=== PATIENT | male | born 1955 | race Caucasian/White ===

== ENCOUNTER → 2017-01-29 08:44 | Outpatient (CLI) | payer MEDICARE | END | disposition home or self-care (01) | LOC: D.RAD 08:44 | DX: J44.9 Chronic obstructive pulmonary disease, unspecified (principal) ==

== ENCOUNTER → 2017-05-21 10:42 | Outpatient (CLI) | payer MEDICARE | END | disposition home or self-care (01) | LOC: D.RT 10:42 | DX: J44.9 Chronic obstructive pulmonary disease, unspecified (principal) ==

== ENCOUNTER 2017-08-03 06:26 | Outpatient (CLI) | payer MEDICARE ==
[~2017-08-03] VITALS: Ht 193 cm; Wt 95.0 kg
--- NOTE | ~2017-08-03 | HEMODYNAMI ---
PATIENT:ELY BANDA MEDICAL RECORD: [id number] : 59 LOCATION:[facility] ADMISSION DATE: 08/03/17 Generatedon:08/03/20178:53 Patient name: ELY BANDA Patient #: [id number] SSN: DO B: 1955 Date of study: 08/03/2017 Page: Of Hemodynamic Procedure Report Patient Data Patient Demographics Procedure consent was obtained First Name: ELY Gender: Male Last Name: SOLO : 1955 [facility] Initial: LAWRENCE Age: 61 year(s) Patient #: [id number] Race: Unknown Additional ID: [id number] Contact details Address: [address] [place] [address] ROAD State: [place] City: [place] Zip code: [address] Past Medical History Allergies: No known allergies Admission Admission Data Admission Date: 08/03/2017 Admission Time: 6:26 Procedure Procedure Types Cath Procedure Diagnostic Procedure LHC LHC w/Coronaries Miscellaneous Procedures Moderate Sedation up to 15 minutes Procedure Description Procedure Date Procedure Date: 08/03/2017 Procedure Start Time: 8:40 Procedure End Time: 8:52 Procedure Staff Name Function Perico Ling MD Performing Physician Denise Morillo RT Scrub Maurice Estrada RN Nurse Becca Kuo RT Monitor Indication Angina Procedure Data Cath Procedure Fluoroscopy Diagnostic fluoroscopy Total fluoroscopy Time: 3.6 time: 3.6 min min Diagnostic fluoroscopy Total fluoroscopy dose: 597 dose: 597 mGy mGy Contrast Material Contrast Material Type Amount (ml) Isovue 300 53 Entry Location Entry Primary Successful Side Size Upsize Upsize Entry Closure Graham ccessful Closure Location (Fr) 1 (Fr) 2 (Fr) Remarks Device Remarks Radial Right 6 Fr Mechanical tr artery Short Compression Estimated blood loss: 10 ml Diagnostic catheters Device Type Used For End Catheter Placement Diagnostic Terumo Multi-vessel Optitorque 5Fr [place] 4.5 Angiography catheter Procedure Complications No complications Procedure Medications Medication Administration Route Dosage Oxygen NC 2 l/min Lidocaine 2% added to field 20 Heparin Flush Bag added to field 2 bags (1000units/500ml NS) 0.9% NaCl I.V. 100 ml/hr Versed I.V. 2 mg Fentanyl I.V. 25 mcg Radial Cocktail I.A. 1 syringe (Verapomil 2mg/Nitro 400mcg/Heparin 1500units) Hemodynamics Rest Heart Rate: 59 (bpm) Pressure Samples Time Site Value (mmHg) Purpose Heart Use Rate(bpm) 8:43 AO 107/13(42) EDP 87 Gradients Valve Time Site Site Mean SEP/DFP Peak To Heart Use 1 2 (mmHg) (sec/min) Peak Rate (mmHg) (bpm) Other 8:44 AO AO 81 Snapshots Pre Cath Intra NCS Post Cath Vital Signs Time Heart Resp SPO2 NIBP (mmHg) Rhythm Pain Sedation Rate (ipm) (%) Status Level (bpm) 8:25:55 61 20 100 142/96(114) NSR 0 (11) 10(A) , No pain 8:29:57 60 19 100 138/96(112) NSR 0 (11) 10(A) , No pain 8:34:17 61 19 100 132/93(109) NSR 0 (11) 10(A) , No pain 8:38:25 65 16 100 132/89(104) NSR 0 (11) 10(A) , No pain 8:42:39 75 14 97 104/69(92) NSR 0 (11) 9(A) , No pain 8:46:43 72 15 95 105/71(85) NSR 0 (11) 9(A) , No pain 8:50:44 69 16 96 110/76(87) NSR 0 (11) 9(A) , No pain 8:52:00 69 15 97 106/72(89) NSR 0 (11) 10(A) , No pain Medications Time Medication Route Dose Verified Delivered Reason Notes E ffectiveness by by 8:26:40 Oxygen NC 2 l/min Perico Buffie used for Sushil Estrada edger technician 8:26:48 Lidocaine 2% added 20ml Perico Perico for local to vial Sushil Ling MD anesthetic field [facility] 8:26:56 Heparin Flush added 2 bags Perico Perico used for Bag to Sushil Ling MD procedure (1000units/500ml field [place] NS) 8:27:06 0.9% NaCl I.V. 100 Perico Buffie Per ml/hr Sushil Estrada RN physician 8:41:02 Radial Cocktail I.A. 1 Perico Perico for (Verapomil syringe Sushil Ling MD vasodilation 2mg/Nitro MD 400mcg/Heparin 1500units) 8:41:05 Fentanyl I.V. 25 mcg Perico Buffie for sedation Sushil Estrada RN, MD 8:41:53 Versed I.V. 2 mg Perico Buffie for sedation Sushil Estrada RN, MD Procedure Log Time Note 8:00:08 Denise Morillo RT(R) sent for patient. Start room use. 8:10:31 Diagnostic Cath Status : Elective 8:11:01 Indication : Angina 8:11:12 Time tracking: Regular hours 8:11:18 Plan of Care:Hemodynamics will remain stable., Cardiac rhythm will remain stable., Comfort level will be maintained., Respiratory function will remain adequate., Patient/ family verbilizes understanding of procedure., Procedure tolerated without complication., Recovers from procedure without complications.. 8:16:19 Patient received from Pre/Post Procedure Room to CCL 2 Alert and oriented. Tansferred to table in Supine position. 8:16:20 Warm blankets applied, and ashish hugger turned on for patient comfort. 8:16:21 Correct patient and procedure confirmed by team. 8:16:22 Signed procedure consent form obtained from patient. 8:24:50 ECG and BP/O2 sat monitors applied to patient. 8:24:51 Vital chart was started 8:24:52 Baseline sample Acquired. 8:24:59 Rhythm: sinus rhythm 8:25:00 Full Disclosure recording started 8:25:40 H&P Date Dictated: 08/02/2017 Within 30 days and on chart.. 8:25:43 Pre-procedure instructions explained to patient. 8:25:45 Family in waiting room. 8:25:47 Patient NPO since Midnight. 8:25:55 Patient allergic to No known allergies 8:26:00 Is the patient allergic to Iodine/contrast media? No. 8:26:01 Is patient on blood thinner?Yes 8:26:04 ACC The patient was administered the following blood thiners within the last 24 hours: ACCPlavix 8:26:06 Patient diabetic? No. 8:26:11 Snore? Unknown 8:26:13 Sleep apnea? No 8:26:25 Airway obstruction? Yes COPD 8:26:28 Dentures? No ? 8:26:35 Patient pain scale 0/10 ?. 8:26:40 Oxygen 2 l/min NC was administered by Maurice Estrada RN; used for procedure; 8:26:48 Lidocaine 2% 20ml vial added to field was administered by Perico Ling MD; for local anesthetic; 8:26:51 IV patent on arrival in left hand with 0.9% NaCl at [facility]. 8:26:56 Heparin Flush Bag (1000units/500ml NS) 2 bags added to field was administered by Perico Ling MD; used for procedure; 8:27:06 0.9% NaCl 100 ml/hr I.V. was administered by Maurice Estrada RN; Per physician; 8:27:37 Lab results completed and on chart. 8:27:41 Right Radial & Right Groin area was prepped with chlora-prep and draped in sterile fashion 8:27:42 Alarms reviewed by R. N. 8:27:43 Sharps counted by scrub and verified by R.N. 8:27:45 Physician paged 8:27:45 Physician arrived 8:28:33 Use device set Radial Dx 8:28:36 Acist Syringe opened to sterile field. 8:28:36 Medline Cath Pack opened to sterile field. 8:28:37 Bag Decanter opened to sterile field. 8:28:37 Terumo 6Fr Slender Glidesheath opened to sterile field. 8:28:37 St Cory 260cm J .035 wire opened to sterile field. 8:28:38 Acist Hand Control opened to sterile field. 8:28:38 Acist Manifold opened to sterile field. 8:28:39 Tegaderm 4 x 4 opened to sterile field. 8:28:39 MBrace Wrist Support opened to sterile field. 8:40:17 --------ALL STOP TIME OUT------ 8:40:17 Final Timeout: patient, procedure, and site verified with staff and physician. All members of the team are in agreement. 8:40:20 Right Radial & Right Groin site verified by team. 8:40:23 Physical assessment completed. ASA score P 2 - A patient with mild systemic disease as per Perico Ling MD. 8:40:26 Sedation plan: IV Moderate Sedation Versed, Fentanyl 8:40:30 Procedure started. 8:40:35 Local anesthetic to right radial artery with Lidocaine 2% by Perico Ling MD.INITIAL ACCESS ONLY 8:40:52 A 6 Fr Short sheath was inserted into the Right Radial artery 8:41:02 Radial Cocktail (Verapomil 2mg/Nitro 400mcg/Heparin 1500units) 1 syringe I.A. was administered by Perico Ling MD; for vasodilation; 8:41:05 Fentanyl 25 mcg I.V. was administered by Maurice Estrada RN; for sedation; 8:41:09 A Diagnostic Terumo Optitorque 5Fr [place] 4.5 catheter was advanced over the wire and used for Multi-vessel Angiography. 8:41:16 Zero performed for pressure channel P1 8:41:53 Versed 2 mg I.V. was administered by Maurice Estrada RN; for sedation; 8:42:34 LV angiography performed. 8:44:35 LCA angiography performed. 8:45:59 RCA angiography performed. 8:49:03 EF : 60 % 8:49:06 LV hemodynamics recorded. 8:49:07 Catheter removed. 8:49:59 Sheath removed intact; hemostasis achieved with Mechanical Compression to the Right Radial artery. 8:50:08 Terumo TR Band Standard opened to sterile field. 8:50:10 Procedure ended.(Physican Out) 8:50:37 Fluoroscopy time 03.60 minutes. 8:50:42 Fluoroscopy dose: 597 mGy 8:50:42 Flurop Dose total: 597 8:50:45 Contrast amount:Isovue 300 53ml. 8:50:47 Sharps counted by scrub and verified by R.N. 8:50:51 TR band inflated with 9cc of air. 8:50:53 Insertion/operative site no bleeding no hematoma. 8:50:59 Post right radial artery:stable 8:51:00 Post Procedure Pulses reassessed and unchanged 8:51:03 Post procedure rhythm: unchanged. 8:51:05 Estimated blood loss: 10 ml 8:51:09 Post procedure instruction explained to patient.Patient verbalizes understanding. 8:51:18 Procedure type changed to Cath procedure, Diagnostic procedure, LHC, LHC w/Coronaries, Miscellaneous Procedures, Moderate Sedation up to 15 minutes 8:51:20 Procedure and supply charges have been captured, reviewed, submitted and are correct. 8:51:54 Procedure Complication : No complications 8:51:56 Vital chart was stopped 8:51:57 See physician's report for complete and final results. 8:51:59 Report given to Pre/Post Procedure Room. 8:52:02 Patient transfered to Pre/Post Procedure Room with Stretcher. 8:52:04 Procedure ended. 8:52:04 Full Disclosure recording stopped 8:52:07 End room use (Document Last) Device Usage Item Name Manufacture Quantity Catalog Hospital Part Current Minimal Lot# / Number Charge Number Stock Stock Serial# Code Acist Acist 1 [id number] [id number] [id number] 987415 20 Syringe Medical Systems Inc Medline Cardinal 1 [id number] [id number] 52160 722222 5 Cath Pack Health Bag Microtek 1 2002S [id number] 09434 151733 5 [employer]. Terumo 6Fr Terumo 1 [id number] 158266 961618 052227 [address] [facility] Cory 1 333707 755321 945220 221527 30 260cm J .035 wire Acist Hand Acist 1 55981 199764 861951 160221 5 Control Medical Systems Inc Acist Acist 1 05182 496990 940851 186277 5 Manifold Medical Systems Inc Tegaderm 4 3M 1 1626W 639234 887932 894231 5 x 4 MBrace Advanced 1 140-0250-00 902712 62799 228516 5 Wrist Vascular Support Dynamics Diagnostic Terumo 1 40-7551 202559 970726 039508 5 Terumo Optitorque 5Fr [place] 4.5 catheter Terumo TR Terumo 1 [id number] 054859 768036 986558 40 Band Standard Signature Audit [place] Stage Time Signature Unsigned Intra-Procedure 08/03/2017 Denise Morillo 8:52:59 AM RT(R) Signatures Monitor : Becca Kuo RT Signature : Date : Time : [facility] [address] [place] [address]
[2017-08-03] MEDS ORDERED: PLAVIX75 MG PO (06:43)
[2017-08-03 06:55] VITALS: BP 130/79; Ht 193 cm; Wt 95.0 kg
[2017-08-03] MEDS ORDERED: K-TAB10 MEQ PO (06:58)
[2017-08-03] MEDS ORDERED: NEURONTIN 300300 MG PO (06:59)
[2017-08-03] MEDS ORDERED: BUSPAR10 MG PO (06:59)
[2017-08-03] MEDS ORDERED: ZYPREXA5 MG PO (06:59)
[2017-08-03] MEDS ORDERED: PEPCID AC20 MG PO (06:59)
[2017-08-03 07:00] LABS: BASOPHILS 0.3 % (0-2); EOSINOPHILS 2.6 % (0-7); HEMATOCRIT 49.6 % (42.0-54.0); HEMOGLOBIN 16.5 g/dL (13.5-17.5); IMMATURE GRANULOCYTES 0.2 % (0-5); LYMPHOCYTES 35.9 % (15-50); MCH 31.7 pg (26.0-34.0); MCHC 33.3 g/dL (31.0-37.0); MCV 95.2 fL (80.0-100.0); MEAN PLATELET VOLUME 11.6 fL (7.4-10.4); PLATELET COUNT 228 10x3/uL (130-400); RBC 5.21 10x6/uL (4.20-6.10); RDW 15.6 % (11.5-14.5); WBC 8.9 10x3/uL (4.8-10.8)
[2017-08-03] MEDS ORDERED: CELEXA20 MG PO (07:00)
[2017-08-03 07:09] LABS: ANION GAP 10.5 mmol/L (8-16); CALCIUM 8.6 mg/dL (8.5-10.1); CARBON DIOXIDE 28.7 mmol/L (21.0-32.0); CREATININE - SERUM 1.2 mg/dL (0.6-1.3); POTASSIUM - SERUM 4.2 mmol/L (3.5-5.1)
--- NOTE | 2017-08-03 09:00 | NUR ---
0900 RECIEVED TO ROOM VIA STRETCHER FROM NURSE PRACTITIONER ADULT WITH TR BAND TO R/WRSIT CDI NO BLEEDING NO HEMATOMA NOTED. REPORTS OF A CLEAN CATH WITH NO INTERVENTION DONE. DR CUELLAR PRESENT WITH FAMILY
--- NOTE | 2017-08-03 09:15 | NUR ---
TR BAND TO R/WRIST CDI NO BLEEDING NO HEMATOMA NOTED. VSS WITH CHEST PAIN DENIED
--- NOTE | 2017-08-03 09:45 | NUR ---
0945 RESTING QUIETLY WITH CHEST PAIN DENIED. TR BAND TO R/WRIST CDI NO BLEEDING NO HEMATOMA NOTED. INSTRUCTED PATIENT TO KEEP RUE STRAIGHT NO BENDING OR FLEXING OF WRIST
--- NOTE | 2017-08-03 10:05 | NUR ---
R/WRIST CDI NO BLEEDING NO HEMATOMA NOTED. PATIENT RESTING [facility]
--- NOTE | 2017-08-03 10:14 | NUR ---
REPOSITIONED TO SITTING WITH HOB UP 30 DEGREES CHEST PAIN DENIED WITH VSS. TR BAND REMAINS TO R/WRIST CDI
--- NOTE | 2017-08-03 10:52 | NUR ---
2 CC AIR REMOVED FROM TR BAND WITH NO BLEEDING NO HEMATOMA NOTED.
--- NOTE | 2017-08-03 11:09 | NUR ---
PIV REMOVED WITH PRESSURE HELD.2 CC AIR REMOVED FROM TR BAND WITH NO BLEEDING NO HEMATOMA NOTED. PATIENT UP TO GET DRESSED FOR DISCHARGE HOME
--- NOTE | 2017-08-03 11:27 | NUR ---
VERBAL AND WRITTEN DISCHARGE GONE OVER WITH PATIENT. TR BAND REMOVED WITH NO BLEEDING NO HEMATOMA NOTED.LEFT VIA WC TO PARKING FOR TRANSPORT HOME
== END 2017-08-03 11:29 | disposition home or self-care (01) ==
LOC: D.CATH 06:26
PROVIDERS: Internal Medicine Cardiovascular Disease
DX: I20.9 Angina pectoris, unspecified (principal); R94.30 Abnormal result of cardiovascular function study, unspecified; R06.02 Shortness of breath; Z01.812 Encounter for preprocedural laboratory examination

== ENCOUNTER → 2017-09-27 08:06 | Outpatient (CLI) | payer MEDICARE ==
[2017-08-03 06:55] VITALS: BMI 25.5
[~2017-09-27 08:06] MED LIST: BUSPAR10 MG PO; CELEXA20 MG PO; K-TAB10 MEQ PO; NEURONTIN 300300 MG PO; PEPCID AC20 MG PO; PLAVIX75 MG PO; PROVENTIL/2.5 MG/3 M INH; SPIRIVA RESPIMAT4 G1 INH; ZYPREXA5 MG PO
== END | disposition home or self-care (01) ==
LOC: D.CT 08:00
DX: J90 Pleural effusion, not elsewhere classified (principal)

== ENCOUNTER → 2017-11-21 07:57 | Outpatient (CLI) | payer MEDICARE ==
[2017-08-03 06:55] VITALS: BMI 25.5
== END | disposition home or self-care (01) ==
LOC: D.RT 07:57
DX: J44.9 Chronic obstructive pulmonary disease, unspecified (principal)

== ENCOUNTER 2017-12-10 05:12 | Outpatient (CLI) | payer MEDICARE ==
[~2017-12-10] VITALS: Ht 193 cm; Wt 99.8 kg
[~2017-12-10 05:12] MED LIST changes: -PROVENTIL/2.5 MG/3 M INH; -SPIRIVA RESPIMAT4 G1 INH
[2017-12-10 06:28] LABS: ANION GAP 10.8 mmol/L (8-16); CARBON DIOXIDE 30.6 mmol/L (21.0-32.0); CREATININE - SERUM 1.2 mg/dL (0.6-1.3); POTASSIUM - SERUM 4.4 mmol/L (3.5-5.1)
[2017-12-10 06:35] LABS: APTT 33.2 SECONDS (22.8-39.4); PROTIME 12.8 SECONDS (11.6-15.0)
[2017-12-10 06:53] LABS: BASOPHILS 0.2 % (0-2); EOSINOPHILS 2.8 % (0-7); HEMATOCRIT 49.8 % (42.0-54.0); HEMOGLOBIN 16.4 g/dL (13.5-17.5); IMMATURE GRANULOCYTES 0.1 % (0-5); LYMPHOCYTES 34.2 % (15-50); MCHC 32.9 g/dL (31.0-37.0); MCV 97.1 fL (80.0-100.0); MEAN PLATELET VOLUME 11.5 fL (7.4-10.4); MONOCYTES 11.1 % (2-11); NEUTROPHILS 51.6 % (40-80); PLATELET COUNT 245 10x3/uL (130-400); RBC 5.13 10x6/uL (4.20-6.10)
[2017-12-10] MEDS ORDERED: SPIRIVA RESPIMAT4 G1 INH (09:01)
[2017-12-10] MEDS ORDERED: PROVENTIL/2.5 MG/3 M INH (09:03)
[2017-12-10 09:15] VITALS: BP 107/78; Ht 193 cm; Wt 99.8 kg
[2017-12-10 13:19] LABS: PROTEIN - SERUM 7.3 g/dL (6.4-8.2)
[2017-12-10 13:26] LABS: PROTEIN - BODY FLUID 4.6 G/DL
[2017-12-10 14:49] LABS: MACROPHAGES BF 9 %; MESOTHELIALS BF 1 %; NEUT - BF 3 %
[2017-12-11 10:16] LABS: ANA REFLEX - DIRECT Negative (Negative)
[2017-12-11 15:16] LABS: ACID FAST SMEAR Negative (()); AFB SPECIMEN PROCESSING Not Indicated (())
[2017-12-12 11:16] LABS: FUNGUS STAIN Final report (())
[2017-12-29 12:12] LABS: AMPHOTERICIN B MIC 1.0 ug/mL (())
[2018-01-07 08:09] LABS: FUNGUS MYCOLOGY CULTURE Final report (())
== END 2017-12-10 15:45 | disposition home or self-care (01) ==
LOC: D.OPS 05:12 → D.SP 10:00 → D.OPS 15:45
PROVIDERS: General Practice; Internal Medicine Pulmonary Disease
DX: J90 Pleural effusion, not elsewhere classified (principal); J98.11 Atelectasis; R93.8 Abnormal findings on diagnostic imaging of other specified body structures; J44.9 Chronic obstructive pulmonary disease, unspecified; K21.9 Gastro-esophageal reflux disease without esophagitis; I95.9 Hypotension, unspecified

== ENCOUNTER → 2018-04-08 12:24 | Outpatient (CLI) | payer MEDICARE ==
[2017-12-10 09:15] VITALS: BMI 26.8
[~2018-04-08 12:24] MED LIST changes: +PROVENTIL/2.5 MG/3 M INH; +SPIRIVA RESPIMAT4 G1 INH
== END | disposition home or self-care (01) ==
LOC: D.RAD 12:24
DX: J90 Pleural effusion, not elsewhere classified (principal)

== ENCOUNTER → 2018-10-01 09:56 | Outpatient (CLI) | payer MEDICARE ==
[2017-12-10 09:15] VITALS: BMI 26.8
== END | disposition home or self-care (01) ==
LOC: D.RAD 09:56
DX: J90 Pleural effusion, not elsewhere classified (principal)

== ENCOUNTER → 2019-07-04 12:39 | Outpatient (CLI) | payer MEDICARE ==
[2017-12-10 09:15] VITALS: BMI 26.8
[~2019-07-04 12:39] MED LIST changes: +FLOMAX0.4 MG PO; +PROZAC20 MG PO
== END | disposition home or self-care (01) ==
LOC: D.RT 12:39
PROVIDERS: ATTEND Internal Medicine Pulmonary Disease
DX: J44.9 Chronic obstructive pulmonary disease, unspecified (principal); J90 Pleural effusion, not elsewhere classified

== ENCOUNTER 2019-07-08 06:40 | Day surgery (SDC) | payer MEDICARE ==
[~2019-07-08] VITALS: Ht 193 cm; Wt 118.8 kg
[2019-07-08 06:42] LABS: HEMATOCRIT 49.3 % (42.0-54.0); HEMOGLOBIN 16.6 g/dL (13.5-17.5); MCH 33.1 pg (26.0-34.0); MCHC 33.7 g/dL (31.0-37.0); MCV 98.2 fL (80.0-100.0); MEAN PLATELET VOLUME 11.6 fL (7.4-10.4); RBC 5.02 10x6/uL (4.20-6.10); RDW 14.4 % (11.5-14.5); WBC 10.4 10x3/uL (4.8-10.8)
[2019-07-08 07:34] VITALS: BP 113/65; Ht 193 cm; Wt 118.8 kg
--- NOTE | 2019-07-08 10:48 | NUR ---
1020 DR. DUCKWORTH ROUNDS
--- NOTE | 2019-07-08 10:48 | NUR ---
1035 FL DIET SERVED. STATES FEELS LIKE NEEDS TO HAVE A BM, I REASSURE HIM THIS IS COMMON SOME MEN DO FEEL THIS SOME HAVE A BM SOME DO NOT.
--- NOTE | 2019-07-08 11:56 | OP ---
PATIENT NAME: ELY BANDA MEDICAL RECORD: [id number] :59 LOCATION:D.OPS ADMISSION DATE: SURGEON: RAUL DUCKWORTH MD DATE OF OPERATION: 07/08/2019 SURGEON: Raul Duckworth MD ANESTHESIA: TIVA by Kostas Casey CRNA. DIAGNOSES: 1. Elevated PSA of 4.91 on 05/15/2019. 2. Bladder outlet obstruction. PROCEDURES: 1. Transrectal ultrasound and prostate biopsy. 2. Cystoscopy. FINDINGS: On transrectal ultrasound, 18.5 gram prostate. Findings on cystoscopy, bladder neck obstruction, nonobstructive lateral lobes of the prostate. There are single ureteral orifices bilaterally with no bladder tumors seen. SPECIMENS: Prostate biopsy cores. BLOOD LOSS: Minimal. CLINICAL HISTORY: This is a 63-year-old male, who has an elevated PSA of 4.91. This is the first time that the PSA has been done for him. His family history is positive for prostate cancer with his father having prostate cancer. He also has some obstructive voiding symptoms. His IPSS score is 8 and quality of life score is 1. He comes today to have cystoscopy as well as transrectal ultrasound and prostate biopsy. He is not allergic to any medications. He was given Ancef conditioner tumbler to the OR. DESCRIPTION OF PROCEDURE: The patient was given IV sedation. He was then placed into lithotomy position and prepped and draped. A 17-Turkish cystoscope with 30-degree lens was used for visualization. Findings are as outlined above. If he has the UroLift procedure done, he would probably have it done in a box configuration around the bladder neck. The bladder was then emptied through the cystoscope sheath and the scope was removed. We then introduced the transrectal ultrasound probe. Prostate size measurements were obtained. Prostate size is estimated to be 18.5 grams. Sextant biopsies were then obtained with at least 3 cores from each sextant. Once all the specimens were obtained, then the procedure was terminated. I will see the patient in followup in 2 weeks' time to review the pathology with him. TRANSINT:[id number] Voice Confirmation ID: [id number] DOCUMENT ID: [id number] OPERATIVE REPORT [id number] SOLO,ELYRAUL BARLOW MD at 7274 CC: [id number] DICTATION DATE: 07/08/19 1018 COMBINED RAIL OPERATOR: 07/08/19 1146 [facility] [address] [facility] [place], [facility]
== END 2019-07-08 14:23 | disposition home or self-care (01) ==
LOC: D.OPS 06:40
PROVIDERS: Anesthesiology; ATTEND Urology
DX: N32.0 Bladder-neck obstruction (principal); Z80.42 Family history of malignant neoplasm of prostate; Z01.812 Encounter for preprocedural laboratory examination

== ENCOUNTER → 2020-01-29 13:13 | Outpatient (CLI) | payer MEDICARE ==
[2019-07-08 07:34] VITALS: BMI 31.9
== END | disposition home or self-care (01) ==
LOC: D.HCCECHO 13:13
PROVIDERS: ATTEND Internal Medicine Cardiovascular Disease
DX: R06.00 Dyspnea, unspecified (principal)

== ENCOUNTER → 2021-01-24 09:32 | Outpatient (CLI) | payer MEDICARE ==
[2019-07-08 07:34] VITALS: BMI 31.9
== END | disposition home or self-care (01) ==
LOC: D.HCCARDIO 09:32
PROVIDERS: ATTEND Internal Medicine Cardiovascular Disease
DX: I25.10 Atherosclerotic heart disease of native coronary artery without angina pectoris (principal)

== ENCOUNTER 2021-02-03 06:36 | Day surgery (SDC) | payer MEDICARE ==
[~2021-02-03] VITALS: Ht 193 cm; Wt 124.4 kg
--- NOTE | ~2021-02-03 | HEMODYNAMI ---
PATIENT:ELY BANDA MEDICAL RECORD: [id number] : 59 LOCATION:[facility] ADMISSION DATE: 02/03/21 Generatedon:18:35 Patient name: ELY BANDA Patient #: [id number] SSN: DO B: 1955 Date of study: 02/03/2021 Page: Of Hemodynamic Procedure Report Patient Data Patient Demographics Procedure consent was obtained First Name: ELY Gender: Male Last Name: SOLO : 1955 [facility] Initial: DEANDRE Age: 65 year(s) Patient #: [id number] Race: Unknown Additional ID: [id number] Contact details Address: [address] [place] [address] ROAD State: [place] City: [place] Zip code: [address] Past Medical History Allergies Allergen Reaction Date Comments Reported Penicillins 02/03/2021 Admission Admission Data Admission Date: 02/03/2021 Admission Time: 6:36 Arrival Date: 02/03/2021 Arrival Time: 0:00 Height (in.): 75.98 BSA: 2.53 (m2) Height (cm.): 193 BMI: 33.29 (kg/m2) Weight (lbs.): 273.37 Weight (kg.): 124 Lab Results Lab Result Date: 02/03/2021 Lab Result Time: 0:00 Biochemistry Name Units Result Min Max BUN mg/dl 23 --(----)-* 7 18 Creatinine mg/dl 1.4 --(----)*- 0.6 1.3 eGFR ml/min 54 *-(----)-- 90 120 NONAFRICAN CBC Name Units Result Min Max Hematocrit % 47 --(-*--)-- 42 54 Hemoglobin g/dl 14.9 --(-*--)-- 13.5 17.5 Procedure Procedure Types Cath Procedure Diagnostic Procedure [facility] w/Coronaries Sedation Charges Moderate Sedation 10-24 minutes Procedure Description Procedure Date Procedure Date: 02/03/2021 Procedure Start Time: 8:15 Procedure End Time: 8:32 Procedure Staff Name Function Maurice Estrada RN Nurse Terrance Awad MD Performing Physician Denise Morillo RT Monitor Naomie Mg RT Scrub Procedure Data Cath Procedure Fluoroscopy Diagnostic fluoroscopy Total fluoroscopy Time: 1.8 time: 1.8 min min Diagnostic fluoroscopy Total fluoroscopy dose: 578 dose: 578 mGy mGy Contrast Material Contrast Material Type Amount (ml) Isovue 300 67 Entry Location Entry Primary Successful Side Size Upsize Upsize Entry Closure Succes sful Closure Location (Fr) 1 (Fr) 2 (Fr) Remarks Device Remarks Femoral Right 5 Fr Exoseal artery Estimated blood loss: 10 ml Diagnostic catheters Device Type Used For End Catheter Placement MULTIPACK JL 4.0 5Fr Procedure catheter MULTIPACK 3DRC 5Fr Procedure catheter MULTIPACK Pigtail 5 Fr Ventriculography catheter Procedure Complications No complications Procedure Medications Medication Administration Route Dosage Oxygen etCO2 Nasal cannula 2 l/min Lidocaine 2% added to field 20 Heparin Flush Bag added to field 2 bags (1000units/500ml NS) 0.9% NaCl I.V. 100 ml/hr Radial Cocktail added to field 1 syringe (Verapamil 2mg/Nitro 400mcg/Heparin 1500units) Versed I.V. 1 mg Fentanyl I.V. 50 mcg Hemodynamics Rest BSA: 2.53 (m2) HGB: 14.9 (g/dl) O2 Consumption: Estimated: 298.35 (ml/min) O2 Co nsumption indexed: Estimated:117.92 (ml/min/m) Heart Rate: 73 (bpm) Pressure Samples Time Site Value (mmHg) Purpose Heart Use Rate(bpm) 8:29 LV 111/-7,11 Snapshot 79 8:30 LV 112/0,15 Pullback 76 8:30 AO 104/59(78) Pullback 76 Gradients Valve Time Site 1 Site 2 Mean SEP/DFP Peak To Heart Use (mmHg) (sec/min) Peak Rate (mmHg) (bpm) Aortic 8:30 LV AO 9 20 8 76 112/0,15 104/59(78) Calculations Valve P-P Mean Valve Index Valve Source Name Gradient Area Flow (cm2) Aortic 8 9 8 9 Snapshots Pre Cath Intra NCS Post Cath Vital Signs Time Heart Resp SPO2 etCO2 NIBP (mmHg) Rhythm Pain Sedation Rate (ipm) (%) (mmHg) Status Level (bpm) 8:08:33 72 21 92 0 Acquisition NSR 0 (11) 10(A) error , No pain 8:12:55 75 11 92 55.8 106/72(88) NSR 0 (11) 10(A) , No pain 8:17:12 75 15 92 49 102/70(86) NSR 0 (11) 10(A) , No pain 8:21:25 76 16 92 42.2 117/73(91) NSR 0 (11) 10(A) , No pain 8:25:41 75 17 93 51.9 108/76(89) NSR 0 (11) 10(A) , No pain 8:29:57 79 16 93 45.2 114/74(92) NSR 0 (11) 10(A) , No pain Medications Time Medication Route Dose Verified Delivered Reason Notes Effectiveness by by 8:13:11 Oxygen etCO2 2 l/min Terrance Buffie used for Nasal Ritesh Estrada RN procedure cannula 8:13:19 Lidocaine 2% added 20ml Terrance Terrance for local to vial Ritesh Awad MD anesthetic field 8:13:25 Heparin Flush added 2 bags Terrance Terrance used for Bag to Ritesh Awad MD procedure (1000units/500ml field NS) 8:13:34 0.9% NaCl I.V. 100 Terrance Buffie Per ml/hr Ritesh Estrada RN physician 8:13:42 Radial Cocktail added 1 Terrance Terrance for not use d, (Verapamil to syringe Ritesh Awad MD vasodilation femoral 2mg/Nitro field access 400mcg/Hepari obtained. 8:14:38 Versed I.V. 1 mg Terrance Buffie for sedation Ritesh Estrada RN 8:14:44 Fentanyl I.V. 50 mcg Terrance Buffie for sedation Ritesh Estrada RN Procedure Log Time Note 7:47:29 Informed consent obtained and on chart 7:51:40 Lab Result : Hemoglobin 14.9 g/dl 7:51:40 Lab Result : Hematocrit 47 % 7:51:40 Lab Result : eGFR NONAFRICAN 54 ml/min 7:51:40 Lab Result : BUN 23 mg/dl 7:51:40 Lab Result : Creatinine 1.4 mg/dl 7:52:55 H&P Date Dictated: 01/17/2021 Within 30 days and on chart., H&P Addendum completed by physician on day of procedure. (MUST COMPLETE FOR ALL OUTPATIENTS). 7:53:01 Patient allergic to Penicillins 7:53:50 Patient Weight : 273.37 lbs 7:53:53 Patient Height : 75.98 inches 7:53:59 Arrival Date: 02/03/2021 12:00:00 AM 7:54:40 Denise Morillo RT(R) sent for patient. Start room use. 7:54:47 Procedure Status Elective Heart Cath (OP). 7:54:49 Time tracking: Regular hours (M-F 7:00 - 5:00) 7:54:53 Plan of Care:Hemodynamics will remain stable., Cardiac rhythm will remain stable., Comfort level will be maintained., Respiratory function will remain adequate., Patient/ family verbilizes understanding of procedure., Procedure tolerated without complication., Recovers from procedure without complications.. 7:55:31 Stress Test: yes; abnormal INFERIOR 7:58:19 Patient received from Pre/Post Procedure Room to CCL 1 Alert and oriented. Tansferred to table in Supine position. 7:58:20 Warm blankets applied, and ashish hugger turned on for patient comfort. 7:58:21 ECG and BP/O2 sat monitors applied to patient. 7:58:21 Correct patient and procedure confirmed by team. 8:08:12 Vital chart was started 8:08:13 Baseline sample Acquired. 8:08:17 Rhythm: sinus rhythm 8:08:19 Full Disclosure recording started 8:08:21 Family in waiting room. 8:08:24 Patient NPO since Midnight. 8:08:30 Is the patient allergic to Iodine/contrast media? No. 8:08:32 Was the patient premedicated? Yes 8:08:34 Is patient on blood thinner?No 8:08:35 Patient diabetic? No. 8:08:39 Snore? Yes 8:08:41 Sleep apnea? Yes 8:09:20 Airway obstruction? Yes COPD, ASTHMA,EMPAZEMA 8:09:45 Patient pain scale 0/10 SOB. 8:09:53 IV patent on arrival in left forearm with 0.9% NaCl at O. 8:10:01 Right Radial & Right Groin area was prepped with chlora-prep and draped in sterile fashion 8:10:02 Alarms reviewed by Paty NRavi 8:10:03 Sharps counted by scrub and verified by R.N. 8:10:04 Physician arrived 8:10:05 --------ALL STOP TIME OUT------ 8:10:07 Final Timeout: patient, procedure, and site verified with staff and physician. All members of the team are in agreement. 8:10:24 Right Radial & Right Groin site verified by team. 8:10:37 Fire Safety Assessment: A--An alcohol-based skin anteseptic being used preoperatively., C--Open oxygen or nitrous oxide is being used., D--An ESU, laser, or fiber-optic light is being used. 8:10:43 Physical assessment completed. ASA score P 2 - A patient with mild systemic disease as per Terrance Awad MD. 8:10:51 3a) 45-59 Moderately reduced kidney function. 8:11:11 Maximum allowable contrast dose (3.7 X eGFR X 0.75)155 ml. 8:11:17 Sedation plan: IV Moderate Sedation Medication:Versed, Fentanyl 8:11:22 Use device set Radial Dx or PCI 8:11:24 ACIST Syringe (35199) opened to sterile field. 8:11:25 Medline Cath Pack ([id number]) opened to sterile field. 8:11:27 Bag Decanter () opened to sterile field. 8:11:29 Tegaderm 4 x 4 (1626W) opened to sterile field. 8:11:30 MBrace Wrist Support ([id number]) opened to sterile field. 8:11:31 NEEDLE Cook 21G 4cm Radial ([id number]) opened to sterile field. 8:11:32 EMERALD Guide Wire (024-445) opened to sterile field. 8:11:34 SHEATH 6FR RAIN (6750083) opened to sterile field. 8:11:35 ZEPHYR REGULAR TR BAND (727773) opened to sterile field. 8:13:11 Oxygen 2 l/min etCO2 Nasal cannula was administered by Maurice Estrada RN; used for procedure; Verbal order read back and verified. 8:13:19 Lidocaine 2% 20ml vial added to field was administered by Terrance Awad MD; for local anesthetic; Verbal order read back and verified. 8:13:25 Heparin Flush Bag (1000units/500ml NS) 2 bags added to field was administered by Terrance Awad MD; used for procedure; Verbal order read back and verified. 8:13:34 0.9% NaCl 100 ml/hr I.V. was administered by Maruice Estrada RN; Per physician; Verbal order read back and verified. 8:13:42 Radial Cocktail (Verapamil 2mg/Nitro 400mcg/Heparin 1500units) 1 syringe added to field was administered by Terrance Awad MD; for vasodilation; not used, femoral access obtained. Verbal order read back and verified. 8:14:38 Versed 1 mg I.V. was administered by Maurice Estrada RN; for sedation; Verbal order read back and verified. 8:14:44 Fentanyl 50 mcg I.V. was administered by Maurice Estrada RN; for sedation; Verbal order read back and verified. 8:15:37 Procedure started. 8:15:48 Local anesthetic to right radial artery with Lidocaine 2% by Terrance Awad MD.INITIAL ACCESS ONLY 8:21:03 UNABLE TO ACCESS THE RADIAL ARTERY. 8:21:09 Local anesthetic to right femoral artery with Lidocaine 2% by Terrance Awad MD.ADDITIONAL ACCESS 8:23:44 A 5 Fr sheath was inserted into the Right Femoral artery 8:24:52 DIAGNOSTIC Multipack 5Fr catheter set ([id number]) opened to sterile field. 8:25:01 A MULTIPACK JL 4.0 5Fr catheter was advanced over the wire and used for Procedure. 8:26:43 LCA angiography performed. 8:26:44 Catheter removed. 8:26:53 A MULTIPACK 3DRC 5Fr catheter was advanced over the wire and used for Procedure. 8:26:57 SHEATH 5FR [place] (VRH815) opened to sterile field. 8:27:02 ACIST Hand Control (13545) opened to sterile field. 8:27:05 ACIST Manifold (55896) opened to sterile field. 8:27:14 RCA angiography performed. 8:28:14 Catheter removed. 8:28:23 A MULTIPACK Pigtail 5 Fr catheter was advanced over the wire and used for Ventriculography. 8:28:26 LV angiography performed. 8:28:32 Zero performed for pressure channel P1 8:28:34 Zero performed for pressure channel P1 8:29:50 EF : 50 % 8:30:01 Catheter removed. 8:30:13 EXOSEAL 5Fr (EX500) opened to sterile field. 8:30:32 Sheath removed intact; hemostasis achieved with Exoseal to the Right Femoral artery. 8:30:35 Procedure ended.(Physican Out) 8:31:03 Fluoroscopy time 01.80 minutes. 8:31:07 Fluoroscopy dose: 578 mGy 8:31:07 Flurop Dose total: 578 8:31:18 Dose Area Product 74226 mGy/cm. 8:31:22 Contrast amount:Isovue 300 67ml. 8:31:25 Maximum allowable dose exceeded? No. 8:31:26 Sharps counted by scrub and verified by R.N. 8:31:29 Insertion/operative site no bleeding no hematoma. 8:31:33 Post right femoral artery:stable 8:31:37 Post Procedure Pulses reassessed and unchanged 8:31:42 Post-procedure physical assessment completed. ASA score P 2 - A patient with mild systemic disease as per Terrance Awad MD. 8:31:47 Post procedure rhythm: sinus rhythm 8:31:51 Estimated blood loss: 10 ml 8:31:53 Post procedure instruction explained to patient.Patient verbalizes understanding. 8:32:06 Procedure type changed to Cath procedure, Diagnostic procedure, LHC, LHC w/Coronaries, Sedation Charges, Moderate Sedation 10-24 minutes 8:32:09 Procedure and supply charges have been captured, reviewed, submitted and are correct. 8:32:41 Procedure Complication : No complications 8:32:44 Vital chart was stopped 8:32:51 Report given to Pre/Post Procedure Room. 8:32:56 Patient transfered to Pre/Post Procedure Room with Stretcher. 8:32:58 Full Disclosure recording stopped 8:32:58 Procedure ended. 8:33:02 End room use (Document Last) 8:33:41 End room use (Document Last) 8:34:14 End room use (Document Last) Device Usage Item Name Manufacture Quantity Catalog Hospital Part Current Minima l Lot# / Number Charge Number Stock Stock Serial# Code [facility] Acist 1 92611 880447 932121 576826 20 Trulia (02588Craft Coffee Medline Medline 1 [id number] 601326 85951 508160 5 Cath Pack ([id number]) Bag Microtek 1 2001S 571776 65042 533434 5 Decanter Medical Inc. () Tegaderm 4 3M 1 1626W 119431 432178 360303 5 x 4 (1626W) MBrace Advanced 1 140-0250-00 489089 97006 812607 5 Wrist Vascular Support Dynamics ([id number]) NEEDLE Cook Cook Medical 1 K58509 147021 299257 030568 5 21G 4cm Radial (N49444) EMERALD Cardinal 1 502-455 085327 074592 592741 5 Guide Wire Health (502-455) SHEATH 6FR Cardinal 1 4042885 085427 1954074 358265 5 [facility] Health (6779410) ZEPHYR Cardinal 1 762592 043630 3416360 922405 5 REGULAR TR Health BAND (437831) MULTIPACK Cardinal 1 835171 5 JL 4.0 5Fr Health catheter DIAGNOSTIC Cardinal 1 LD5529 136422 72603 704563 30 Multipack Health 5Fr catheter set (ST5195) MULTIPACK Cardinal 1 750103 5 3DRC 5Fr Health catheter SHEATH 5FR Terumo 1 WTW519 798526 579352 445348 5 [place] (TPD507) ACIST Hand Acist 1 16093 627607 566709 003892 5 Control Medical (97625) Systems Inc ACIST Acist 1 77123 617732 557252 099762 5 Manifold Medical (58792) Systems Inc MULTIPACK Cardinal 1 072649 5 Pigtail 5 Health Fr catheter EXOSEAL 5Fr Cardinal 1 EX500 885066 825940 508588 10 (EX500) Health Signature Audit [place] Stage Time Signature Unsigned Intra-Procedure 02/03/2021 Denise Morillo 8:33:41 AM RT(R) Intra-Procedure 02/03/2021 Maurice Estrada RN 8:34:14 AM Intra-Procedure 02/03/2021 Terrance Awad MD 8:35:52 AM [place] [address] [place] [address]
[2021-02-03] MEDS ORDERED: OMEPRAZOLE40 MG PO (06:50)
[2021-02-03] MEDS ORDERED: LIPITOR20 MG PO (06:50)
[2021-02-03] MEDS ORDERED: TOPROL XL25 MG PO (06:51)
[2021-02-03] MEDS ORDERED: FUROSEMIDE20 MG PO (06:52)
[2021-02-03] MEDS ORDERED: TRELEGY ELLIPT1 EACH INH (06:54)
[2021-02-03] MEDS ORDERED: IPRAT-ALBUT 0.5-3 ML UPD (06:56)
[2021-02-03 07:16] VITALS: BP 125/80; Ht 193 cm; Wt 124.4 kg
[2021-02-03 07:27] LABS: BASOPHILS 0.2 % (0-2); EOSINOPHILS 2.1 % (0-7); HEMOGLOBIN 14.9 g/dL (13.5-17.5); IMMATURE GRANULOCYTES 0.3 % (0-5); LYMPHOCYTE ABS# 2.93 10x3/uL (1.32-3.57); LYMPHOCYTES 21.8 % (15-50); MCH 31.3 pg (26.0-34.0); MCHC 31.7 g/dL (31.0-37.0); MCV 98.7 fL (80.0-100.0); MEAN PLATELET VOLUME 11.4 fL (7.4-10.4); NEUTROPHILS 67.6 % (40-80); PLATELET COUNT 305 10x3/uL (130-400); RBC 4.76 10x6/uL (4.20-6.10); RDW 14.3 % (11.5-14.5); WBC 13.5 10x3/uL (4.8-10.8)
[2021-02-03 07:48] LABS: ANION GAP 7.4 mmol/L (8-16); CALCIUM 8.8 mg/dL (8.5-10.1); CARBON DIOXIDE 35.1 mmol/L (21.0-32.0); CHOL - HDL RATIO 4.9 ratio (2.3-4.9); CREATININE - SERUM 1.4 mg/dL (0.6-1.3); LDL-HDL RATIO 2.6 ratio (1.5-3.5); POTASSIUM - SERUM 4.5 mmol/L (3.5-5.1)
--- NOTE | 2021-02-03 08:45 | NUR ---
PT REC'D TO CATH RECOVERY ROOM 5 VIA STRETCHER. MONITORS ESTAB, SISTER AT BS. SEE POST CATH NUT FORMER. ALARMS ON AND C/L IN REACH.
--- NOTE | 2021-02-03 09:00 | NUR ---
R GROIN EXOSEAL SITE SOFT, NO S/S BLEEDING OR HEMATOMA. R LEG/FOOT WARM WITH PALP PULSES AND CAP REFILL WNL. PT DROWSY, ANSWERS APPROP. ALARMS ON AND C/L IN REACH.
--- NOTE | 2021-02-03 09:30 | NUR ---
R GROIN SITE SOFT, NO S/S BLEEDING OR HEMATOMA. R LEG/FOOT WARM WITH PALP PULSES AND CAP REFILL WNL. PT STILL DROWSY, PERIODS OF SLEEP APNEA NOTED AND DISCUSSED WITH PT AND HIS SISTER. PT DENIES PAIN OR NEEDS. ALARMS ON AND C/L IN REACH.
--- NOTE | 2021-02-03 09:45 | NUR ---
R GROIN SITE SOFT, NO S/S BLEEDING OR HEMATOMA, PULSES PALP. HOB ELEVATED AND WATER AND PUDDINGS PROVIDED PER REQUEST. ALARMS ON AND C/L IN REACH.
--- NOTE | 2021-02-03 11:02 | NUR ---
ALL DISCHARGE INSTRUCTIONS, INCLUDING RESTRICTIONS, MEDS AND F/U APPT DONE WITH PT AND SISTER - BOTH VERBALIZE UNDERSTANDING. PIV D/C'D INTACT, DSG APPLIED.
--- NOTE | 2021-02-03 11:05 | NUR ---
DR. MARKHAM IN TO SEE PT, UPDATE GIVEN AND QUESTIONS ANSWERED.
--- NOTE | 2021-02-03 11:12 | NUR ---
PT UP TO GET DRESSED AND GO TO BR INDEPENDENTLY.
--- NOTE | 2021-02-03 11:23 | NUR ---
PT D/C'D VIA WC TO PRIVATE VEHICLE WITH ALL BELONGINGS AND PAPERWORK
== END 2021-02-03 11:23 | disposition home or self-care (01) ==
LOC: D.CATH 06:36
PROVIDERS: ATTEND Internal Medicine Cardiovascular Disease
DX: I25.118 Atherosclerotic heart disease of native coronary artery with other forms of angina pectoris (principal); R94.39 Abnormal result of other cardiovascular function study; R06.00 Dyspnea, unspecified; J44.9 Chronic obstructive pulmonary disease, unspecified

== ENCOUNTER 2021-02-07 18:41 | Inpatient (IN) | payer MEDICARE ==
[~2021-02-07] VITALS: Ht 193 cm; Wt 122.5 kg
[~2021-02-07 18:41] MED LIST changes: +FUROSEMIDE20 MG PO; +IPRAT-ALBUT 0.5-3 ML UPD; +LIPITOR20 MG PO; +OMEPRAZOLE40 MG PO; +TOPROL XL25 MG PO; +TRELEGY ELLIPT1 EACH INH
[2021-02-07 20:04] LABS: APTT 31.4 SECONDS (22.8-39.4); HEMATOCRIT 46.4 % (42.0-54.0); HEMOGLOBIN 14.6 g/dL (13.5-17.5); INR 1.12 (0.85-1.17); LYMPHOCYTE ABS# 2.11 10x3/uL (1.32-3.57); MCH 30.9 pg (26.0-34.0); MCHC 31.5 g/dL (31.0-37.0); MCV 98.1 fL (80.0-100.0); MEAN PLATELET VOLUME 11.5 fL (7.4-10.4); NEUTROPHIL ABS# 17.64 10x3/uL (1.78-5.38); PLATELET COUNT 275 10x3/uL (130-400); PROTIME 13.4 SECONDS (11.6-15.0); RBC 4.73 10x6/uL (4.20-6.10); RDW 14.3 % (11.5-14.5); WBC 21.4 10x3/uL (4.8-10.8)
[2021-02-07 20:14] VITALS: BP 115/81
[2021-02-07 20:15] LABS: CALC OSMOLALITY 267 mosm/kg (275-300); CALCIUM 8.8 mg/dL (8.5-10.1); CHLORIDE - SERUM 97 mmol/L (98-107); CREATININE - SERUM 1.5 mg/dL (0.6-1.3); GLUCOSE 107 mg/dL (74-106); POTASSIUM - SERUM 4.7 mmol/L (3.5-5.1); SODIUM 133 mmol/L (136-145); UREA NITROGEN 18 mg/dL (7-18); eGFR NON AFRICAN AMERICAN 50 mL/min (90-120)
[2021-02-07 20:27] LABS: ALBUMIN 3.3 g/dL (3.4-5.0); ALKALINE PHOSPHATASE 143 U/L (30-120); ALT (SGPT) 29 U/L (10-68); BILIRUBIN - TOTAL 0.49 mg/dL (0.2-1.3); MAGNESIUM - SERUM 1.9 mg/dL (1.8-2.4); PROTEIN - SERUM 6.9 g/dL (6.4-8.2); THYROID STIMULATING HORMONE 1.59 uIU/mL (0.36-3.74); TROPONIN-I < 0.017 ng/mL (0.000-0.060)
[2021-02-07 21:06] VITALS: BP 115/81
[2021-02-07 22:51] VITALS: BP 110/77
[2021-02-07 22:56] LABS: EOSINOPHILS 5 % (0-7); LYMPHOCYTES 29 % (15-50); MONOCYTES 4 % (2-11); NEUTROPHILS 62 % (40-80); PLATELET ESTIMATE NORMAL
[2021-02-08 02:20] VITALS: BP 102/65; BMI 32.9
[2021-02-08 02:57] LABS: BILIRUBIN NEGATIVE (NEGATIVE); KETONE NEGATIVE (NEGATIVE); NITRITE NEGATIVE (NEGATIVE); UROBILINOGEN NORMAL mg/dL (< 2)
[2021-02-08 06:09] LABS: BASOPHILS 0.2 % (0-2); EOSINOPHILS 1.5 % (0-7); HEMOGLOBIN 13.6 g/dL (13.5-17.5); IMMATURE GRANULOCYTES 0.4 % (0-5); LYMPHOCYTE ABS# 2.51 10x3/uL (1.32-3.57); LYMPHOCYTES 14.9 % (15-50); MCH 30.5 pg (26.0-34.0); MCHC 30.9 g/dL (31.0-37.0); MCV 98.7 fL (80.0-100.0); MEAN PLATELET VOLUME 11.2 fL (7.4-10.4); NEUTROPHIL ABS# 12.65 10x3/uL (1.78-5.38); PLATELET COUNT 251 10x3/uL (130-400); RBC 4.46 10x6/uL (4.20-6.10); RDW 14.6 % (11.5-14.5); WBC 16.9 10x3/uL (4.8-10.8)
[2021-02-08 06:41] LABS: CALCIUM 8.8 mg/dL (8.5-10.1); CREATININE - SERUM 1.4 mg/dL (0.6-1.3); MAGNESIUM - SERUM 2.1 mg/dL (1.8-2.4); PHOSPHOROUS 2.8 mg/dL (2.5-4.9)
[2021-02-08 08:26] VITALS: BP 109/62
[2021-02-08 12:43] VITALS: BP 134/75
[2021-02-08 17:44] VITALS: BP 121/75
[2021-02-08 19:53] VITALS: BP 125/78
[2021-02-09] VITALS: BP 110/68
[2021-02-09 04:00] VITALS: BP 115/74
[2021-02-09 06:35] LABS: BASOPHILS 0.2 % (0-2); EOSINOPHILS 2.6 % (0-7); HEMATOCRIT 41.2 % (42.0-54.0); HEMOGLOBIN 12.8 g/dL (13.5-17.5); IMMATURE GRANULOCYTES 0.3 % (0-5); LYMPHOCYTE ABS# 1.77 10x3/uL (1.32-3.57); LYMPHOCYTES 13.5 % (15-50); MCHC 31.1 g/dL (31.0-37.0); MCV 99.8 fL (80.0-100.0); MEAN PLATELET VOLUME 12.1 fL (7.4-10.4); MONOCYTES 7.9 % (2-11); NEUTROPHIL ABS# 9.87 10x3/uL (1.78-5.38); NEUTROPHILS 75.5 % (40-80); PLATELET COUNT 226 10x3/uL (130-400); RBC 4.13 10x6/uL (4.20-6.10); RDW 14.8 % (11.5-14.5); WBC 13.1 10x3/uL (4.8-10.8)
[2021-02-09 07:00] LABS: ANION GAP 9.4 mmol/L (8-16); CALCIUM 8.2 mg/dL (8.5-10.1); CARBON DIOXIDE 31.9 mmol/L (21.0-32.0); CREATININE - SERUM 1.1 mg/dL (0.6-1.3); MAGNESIUM - SERUM 2.1 mg/dL (1.8-2.4); POTASSIUM - SERUM 4.3 mmol/L (3.5-5.1)
[2021-02-09 07:01] LABS: PHOSPHOROUS 3.8 mg/dL (2.5-4.9)
--- NOTE | 2021-02-09 07:56 | NUR ---
IN BED SLEEPING. AROUSES TO VOICE. DENIES NEEDS AT THIS TIME. IV INFUSING PER MAR. BED LOW POSITION, CALL LIGHT IN REACH. WILL CONTINUE TO MONITOR.
[2021-02-09 08:17] VITALS: BP 121/78
[2021-02-09 12:12] VITALS: BP 132/71
[2021-02-09 13:13] VITALS: Ht 193 cm; Wt 122.5 kg
[2021-02-09 17:30] VITALS: BP 147/83
[2021-02-09 20:00] VITALS: BP 138/93
--- NOTE | 2021-02-10 00:50 | NUR ---
PT MANAGER LAUNDRY LIGHT RESTING IN BED WITH HIS EYES OPEN. PT REQUEST HIS IV LAC SALINE LOCK TO BE REMOVE BECAUSE IT WAS HURTING. IV REMOVED SKIN INTACT. PT HAS NO OTHER NEEDS AT THE MOMENT.
--- NOTE | 2021-02-10 03:40 | NUR ---
I have reviewed this patient and I concur with the Shift Assessment completed by the Licensed Practical Nurse today this shift.
[2021-02-10 04:00] VITALS: BP 127/84
[2021-02-10 06:27] LABS: BASOPHILS 0.2 % (0-2); EOSINOPHILS 4.7 % (0-7); HEMATOCRIT 39.9 % (42.0-54.0); HEMOGLOBIN 12.4 g/dL (13.5-17.5); IMMATURE GRANULOCYTES 0.4 % (0-5); LYMPHOCYTE ABS# 1.66 10x3/uL (1.32-3.57); LYMPHOCYTES 13.8 % (15-50); MCH 30.9 pg (26.0-34.0); MCHC 31.1 g/dL (31.0-37.0); MCV 99.5 fL (80.0-100.0); MEAN PLATELET VOLUME 11.5 fL (7.4-10.4); MONOCYTES 7.9 % (2-11); NEUTROPHIL ABS# 8.77 10x3/uL (1.78-5.38); PLATELET COUNT 243 10x3/uL (130-400); RBC 4.01 10x6/uL (4.20-6.10); RDW 14.9 % (11.5-14.5)
[2021-02-10 06:49] LABS: CALC OSMOLALITY 283 mosm/kg (275-300); CALCIUM 8.2 mg/dL (8.5-10.1); CARBON DIOXIDE 34.4 mmol/L (21.0-32.0); CHLORIDE - SERUM 105 mmol/L (98-107); GLUCOSE 98 mg/dL (74-106); MAGNESIUM - SERUM 2.2 mg/dL (1.8-2.4); PHOSPHOROUS 3.6 mg/dL (2.5-4.9); POTASSIUM - SERUM 4.5 mmol/L (3.5-5.1); SODIUM 142 mmol/L (136-145); UREA NITROGEN 15 mg/dL (7-18); eGFR NON AFRICAN AMERICAN 80 mL/min (90-120)
--- NOTE | 2021-02-10 07:34 | NUR ---
RECIEVED BEDSIDE REPORT. PATIENT SLEEPING, AROUSES TO VOICE AND DENIES NEEDS AT THIS TIME. BED LOW POSITION, CALL LIGHT IN REACH. IV INFUSING PER MAR. FREE FROM SIGNS OF DISTRESS. WILL CONTINUE TO MONITOR.
[2021-02-10 08:14] VITALS: BP 119/66
[2021-02-10 12:24] VITALS: BP 120/64
--- NOTE | 2021-02-10 13:11 | NUR ---
IN BED WATCHING TV. FREE FROM SIGNS OF DISTRESS. CALL LIGHT IN REACH. BED LOW POSITION, WILL CONTINUE TO MONITOR.
[2021-02-10 18:46] VITALS: BP 128/80
--- NOTE | 2021-02-10 19:30 | NUR ---
PT SITTING UP IN BED WITHOUT DISTRESS, AOX4. DENIES PAIN OR NEEDS AT THIS TIME. CL IN REACH, WILL CTM
[2021-02-10 20:00] VITALS: BP 135/74
[2021-02-11] VITALS: BP 132/80
[2021-02-11 04:00] VITALS: BP 86/55
[2021-02-11 06:10] LABS: BASOPHILS 0.3 % (0-2); EOSINOPHILS 5.6 % (0-7); HEMATOCRIT 40.2 % (42.0-54.0); HEMOGLOBIN 12.4 g/dL (13.5-17.5); IMMATURE GRANULOCYTES 0.5 % (0-5); LYMPHOCYTE ABS# 1.88 10x3/uL (1.32-3.57); MCH 30.8 pg (26.0-34.0); MCHC 30.8 g/dL (31.0-37.0); MEAN PLATELET VOLUME 11.6 fL (7.4-10.4); MONOCYTES 8.3 % (2-11); NEUTROPHIL ABS# 7.59 10x3/uL (1.78-5.38); NEUTROPHILS 68.3 % (40-80); PLATELET COUNT 285 10x3/uL (130-400); RBC 4.02 10x6/uL (4.20-6.10); RDW 14.8 % (11.5-14.5); WBC 11.1 10x3/uL (4.8-10.8)
[2021-02-11 06:19] LABS: CALC OSMOLALITY 281 mosm/kg (275-300); CALCIUM 8.3 mg/dL (8.5-10.1); CARBON DIOXIDE 32.9 mmol/L (21.0-32.0); CHLORIDE - SERUM 107 mmol/L (98-107); GLUCOSE 87 mg/dL (74-106); MAGNESIUM - SERUM 1.9 mg/dL (1.8-2.4); PHOSPHOROUS 3.4 mg/dL (2.5-4.9); POTASSIUM - SERUM 4.6 mmol/L (3.5-5.1); SODIUM 142 mmol/L (136-145); UREA NITROGEN 13 mg/dL (7-18); eGFR NON AFRICAN AMERICAN 80 mL/min (90-120)
--- NOTE | 2021-02-11 08:00 | NUR ---
ASSESSMENT PER FLOW SHEET. PATIENT IS WITHOUT DISTRESS.MONITOR FOR NEEDS.CALL LIGHT IN REACH
[2021-02-11 09:23] VITALS: BP 123/80
[2021-02-11 12:31] VITALS: BP 112/62
[2021-02-11 16:36] VITALS: BP 122/74
[2021-02-11 20:33] VITALS: BP 146/87
[2021-02-12 00:14] VITALS: BP 112/64
--- NOTE | 2021-02-12 03:00 | NUR ---
I have reviewed this patient and I concur with the Shift Assessment completed by the Licensed Practical Nurse today this shift.
[2021-02-12 05:47] VITALS: BP 153/68
[2021-02-12 06:21] LABS: BASOPHILS 0.2 % (0-2); EOSINOPHILS 5.4 % (0-7); HEMATOCRIT 42.2 % (42.0-54.0); IMMATURE GRANULOCYTES 0.4 % (0-5); LYMPHOCYTE ABS# 1.97 10x3/uL (1.32-3.57); LYMPHOCYTES 17.5 % (15-50); MCHC 30.8 g/dL (31.0-37.0); MCV 100.5 fL (80.0-100.0); MEAN PLATELET VOLUME 11.4 fL (7.4-10.4); MONOCYTES 7.5 % (2-11); NEUTROPHIL ABS# 7.76 10x3/uL (1.78-5.38); PLATELET COUNT 314 10x3/uL (130-400); WBC 11.3 10x3/uL (4.8-10.8)
[2021-02-12 06:47] LABS: ANION GAP 6.5 mmol/L (8-16); CALCIUM 9.1 mg/dL (8.5-10.1); CARBON DIOXIDE 32.9 mmol/L (21.0-32.0); CREATININE - SERUM 1.1 mg/dL (0.6-1.3); MAGNESIUM - SERUM 2.2 mg/dL (1.8-2.4); POTASSIUM - SERUM 4.4 mmol/L (3.5-5.1)
[2021-02-12 07:02] LABS: PHOSPHOROUS 4.5 mg/dL (2.5-4.9)
[2021-02-12 09:00] VITALS: BP 124/71
[2021-02-12] MEDS ORDERED: MUCINEX600 MG PO (09:15)
[2021-02-12] MEDS ORDERED: SINGULAIR10 MG PO (09:15)
[2021-02-12] MEDS ORDERED: PULMICORT0.5 MG/21 UPD (09:15)
[2021-02-12] MEDS ORDERED: TESSALON PERLE100 MG PO (09:15)
[2021-02-12] MEDS ORDERED: FEXOFENADINE HC60 MG PO (09:16)
[2021-02-12] MEDS ORDERED: OMNICEF300 MG PO (09:16)
[2021-02-12] MEDS ORDERED: AZITHROMYCIN500 MG PO (09:16)
[2021-02-12] MEDS ORDERED: PEPCID PO (09:16)
--- NOTE | 2021-02-12 10:23 | NUR ---
PATIENT IV ACSESS REMOVED CATHETER TIP INTACT. TOLERATED WELL.
--- NOTE | 2021-02-12 12:12 | NUR ---
PT WAS LEAVING HE SAID HIS PHARMACY WAS CLOSED FOR WEEKEND. RX'S CALLED TO [facility]/ REQUESTED.
--- NOTE | 2021-02-13 20:52 | MORECARE ---
CASE MANAGEMENT DISCHARGE SUMMARY PATIENT: ELY BANDA UNIT: [id number] ADM DATE: 02/08/21 AGE: 65 : 57 SEX: M ROOM/BED: D.2225 AUTHOR: SANJANADOC PHYSICIAN: REFERRING PHYSICIAN: MARCELO ZUNIGA MD DATE OF SERVICE: 02/13/21 Case Management Discharge Planning Summary DCP REVIEW SUMMARY ANTICIPATED D/C DATE: 02/12/2021 EXPECTED LOS : 4 CASE STATUS: DCP Initiated INITIAL REVIEW: 02/08/2021 INITIAL REVIEWER: Horacio Sierra FINAL DISCHARGE DISPOSITION: : FINAL REVIEWER: FINAL REVIEW DATE: LACE: UPDATED BY: [id number]: Naomie Alberto on 02/08/21 17:21 CT QUESTION: ANSWER Length of Stay (Prior Admit): None Acute Admission: Inpatient Comorbidity: (2PTS) Mld Liver DZ, DM W/End Organ Damage, CHF, COPD, CA, Leuk, Lympho, Any Tumor, Mod to Sev Renal Comorbidity Total Score 2 PT Emergency Room visits during previous 6 months: 1 Visit DCP Focus Questions & Answers DCP REV -DCP Review Added on: 02/13/21 8:48 pm QUESTION: ANSWER DCP Evaluation Patient gives permission to discuss discharge plans with: (name, relationship and number) : SISTER CRUZ, Physical Status: : Independent with ADL's Baseline cognitive status: : *Oriented to person, place, situation, time and present Patient's ability to cope with chronic illness : d. No chronic illness Living Arrangements: : Home Alone with Support Medication Management: : Patient states can afford medications Medication Management: : Patient states can read and understand medication labels Pharmacy name(s): : [facility] Does Patient have transportation to get home and to follow-up medical appointments when discharged from the hospital? : Yes Does the patient have electricity at home? : Yes Does the patient have running water in their house? : Yes Equipment in use: : Other Other Equipment comments: : HOME OXYGEN Equipment agency name and contact information: : [facility] PATIENT Mental health screen: : No mental health history Patient's current cognitive status: : *Oriented to person, place, situation, time and present Functional screen assessment: : Basic needs can adequately be met by self Functional screen assessment: : No issues identified Patient with capacity for self-care or can be cared for in same environment as prior to hospitalization? : Yes Does the patient have the ability to pay for or attain post discharge needs / services? : Yes Is there a likelihood that the patient will require additional services to return to the preadmission environment? : No Results of this evaluation have been discussed with: : Patient Would patient like to participate in any Care Coordination programs (if applicable): : Not applicable Patient and/or caregiver agree upon recommended discharge plan? : Yes Equipment needed for post hospitalization: : None Physical environment modification needed / anticipated for discharge: : No DCP Re-evaluation Would patient like to participate in any Care Coordination programs (if applicable): : Not applicable PATIENT: ELY BANDA ENCOUNTER: [id number] MEDICAL RECORD#: [id number] ADMISSION DATE: 02/08/2021 DISCHARGE DATE: 02/12/2021 ATTENDING MD: KRISTEN: AGE: 65 MARITAL STATUS: D DC PLAN ID: [id number] FACILITY: [facility] PRINTED ON: 02/13/21 20:51 CT All edits/amendments must be made on the electronic document DICTATION DATE: 02/13/212050 HOSPICE CLINICAL SUPERVISOR: MARYJANE 02/13/212050 RPT#: [id number] DC DATE:02/12/21 STATUS: DIS IN [facility] [address] [place] [address] END OF REPORT
--- NOTE | 2021-02-13 21:02 | MORECARE ---
CASE MANAGEMENT DISCHARGE SUMMARY PATIENT: ELY BANDA UNIT: [id number] ADM DATE: 02/08/21 AGE: 65 : 57 SEX: M ROOM/BED: D.2225 AUTHOR: SANJANADOC PHYSICIAN: REFERRING PHYSICIAN: MARCELO ZUNIGA MD DATE OF SERVICE: 02/13/21 Case Management Discharge Planning Summary COMMENTS ENTERED DATE: 02/13/21 20:53 CT COMMENT TYPE: Discharge Planning REVIEWER: Horacio Sierra NO NEEDS. CM met with patient to complete DC plan and to evaluate needs. Patient stated that he lives alone and is independent. Patient stated that has home oxygen through [facility]. Patient stated that he uses [facility] and Dr. Hancock is his PCP. At discharge, the patient plans to return home and feels this is a safe discharge. CM discussed availability of home health, rehab services, and medical equipment. Patient declined HHS, SNF, IPR, and DME. Patient voiced no other needs at this time and is satisfied with DC plan. DC IMM delivered, explained, signed by the patient, and placed in chart. Signed form also left with the patient. CM will continue to follow and will assist as needed with dc plans/needs. DCP REVIEW SUMMARY ANTICIPATED D/C DATE: 02/12/2021 EXPECTED LOS : 4 CASE STATUS: DCP Initiated INITIAL REVIEW: 02/08/2021 INITIAL REVIEWER: Horacio Sierra FINAL DISCHARGE DISPOSITION: : FINAL REVIEWER: FINAL REVIEW DATE: LACE: UPDATED BY: [id number]: Naomie Alberto on 02/08/21 17:21 CT QUESTION: ANSWER Length of Stay (Prior Admit): None Acute Admission: Inpatient Comorbidity: (2PTS) Mld Liver DZ, DM W/End Organ Damage, CHF, COPD, CA, Leuk, Lympho, Any Tumor, Mod to Sev Renal Comorbidity Total Score 2 PT Emergency Room visits during previous 6 months: 1 Visit DCP Focus Questions & Answers DCP REV -DCP Review Added on: 02/13/21 8:48 pm QUESTION: ANSWER DCP Evaluation Patient gives permission to discuss discharge plans with: (name, relationship and number) : SISTER CRUZ, Physical Status: : Independent with ADL's Baseline cognitive status: : *Oriented to person, place, situation, time and present Patient's ability to cope with chronic illness : d. No chronic illness Living Arrangements: : Home Alone with Support Medication Management: : Patient states can afford medications Medication Management: : Patient states can read and understand medication labels Pharmacy name(s): : [facility] Does Patient have transportation to get home and to follow-up medical appointments when discharged from the hospital? : Yes Does the patient have electricity at home? : Yes Does the patient have running water in their house? : Yes Equipment in use: : Other Other Equipment comments: : HOME OXYGEN Equipment agency name and contact information: : [facility] PATIENT Mental health screen: : No mental health history Patient's current cognitive status: : *Oriented to person, place, situation, time and present Functional screen assessment: : Basic needs can adequately be met by self Functional screen assessment: : No issues identified Patient with capacity for self-care or can be cared for in same environment as prior to hospitalization? : Yes Does the patient have the ability to pay for or attain post discharge needs / services? : Yes Is there a likelihood that the patient will require additional services to return to the preadmission environment? : No Results of this evaluation have been discussed with: : Patient Would patient like to participate in any Care Coordination programs (if applicable): : Not applicable Patient and/or caregiver agree upon recommended discharge plan? : Yes Equipment needed for post hospitalization: : None Physical environment modification needed / anticipated for discharge: : No DCP Re-evaluation Would patient like to participate in any Care Coordination programs (if applicable): : Not applicable PATIENT: ELY BANDA ENCOUNTER: [id number] MEDICAL RECORD#: [id number] ADMISSION DATE: 02/08/2021 DISCHARGE DATE: 02/12/2021 ATTENDING MD: KRISTEN: AGE: 65 MARITAL STATUS: D DC PLAN ID: [id number] FACILITY: [facility] PRINTED ON: 02/13/21 21:02 CT All edits/amendments must be made on the electronic document DICTATION DATE: 02/13/212101 FARM CONSULTANT: MARYJANE 02/13/212101 RPT#: [id number] DC DATE:02/12/21 STATUS: DIS IN [facility] [address] [place] [address] END OF REPORT
== END 2021-02-12 11:00 | disposition home or self-care (01) | DRG 194 ==
LOC: D.ER 18:41 → D.MS 02-08 01:40
PROVIDERS: Family Medicine; ADMIT Family Medicine; ATTEND Family Medicine
DX: J18.9 Pneumonia, unspecified organism (principal); E87.1 Hypo-osmolality and hyponatremia; N17.9 Acute kidney failure, unspecified; E78.5 Hyperlipidemia, unspecified; J45.909 Unspecified asthma, uncomplicated; J43.9 Emphysema, unspecified; K21.9 Gastro-esophageal reflux disease without esophagitis; F41.8 Other specified anxiety disorders; I10 Essential (primary) hypertension